=== PATIENT | male | born 1970 | race Caucasian/White ===

== ENCOUNTER 2018-01-07 07:56 | Emergency (ER) | payer OTHER ==
[~2018-01-07] VITALS: Ht 165.1 cm; Wt 100.7 kg
[2018-01-07 08:06] VITALS: Ht 165.1 cm; Wt 100.7 kg
[2018-01-07 08:44] LABS: BASOPHIL % 0.8 % (0-2); PLATELET COUNT 219 x10^3mcL (130-400); RED CELL DISTRIBUTION WIDTH 12.9 % (11.5-14.5)
[2018-01-07 08:45] LABS: microscopic required? NO
[2018-01-07 09:01] LABS: CALCIUM 8.1 mg/dL (8.5-10.1); CARBON DIOXIDE 25.1 mmol/L (21-32); CHLORIDE SERUM 101 mmol/L (98-107); CREATININE SERUM 0.9 mg/dL (0.7-1.3); GFR1 > 60 mL/min; GLUCOSE SERUM 179 mg/dL (74-106); SODIUM SERUM 137 mmol/L (136-145)
[2018-01-07 09:05] LABS: ALKALINE PHOSPHATASE 81 U/L (46-116); ALT/SGPT 64 U/L (16-63); AMYLASE 31 U/L (25-115); AST/SGOT 25 U/L (15-37); BILIRUBIN TOTAL 0.2 mg/dL (0.20-1.00); LIPASE 143 IU/L (73-393)
[2018-01-07 09:06] LABS: ALBUMIN 3.3 g/dL (3.4-5.0)
[2018-01-07 09:24] LABS: UA SPECIFIC GRAVITY >=1.030 (1.005-1.035); urine erythrocyte NEGATIVE (NEGATIVE)
[2018-01-07 10:04] VITALS: BP 112/65
== END 2018-01-07 11:35 | disposition home or self-care (01) ==
LOC: ED 07:56
PROVIDERS: Emergency Medicine
DX: K57.90 Diverticulosis of intestine, part unspecified, without perforation or abscess without bleeding (principal); M54.5 Low back pain
CPT/HCPCS: J1885; J7030

== ENCOUNTER 2020-04-16 00:30 | Emergency (ER) | payer OTHER ==
[~2020-04-16] VITALS: Ht 165.1 cm; Wt 104.3 kg
[2020-04-16 00:45] VITALS: Ht 165.1 cm; Wt 104.3 kg
[2020-04-16 02:56] LABS: BASOPHIL % 0.3 % (0-2); PLATELET COUNT 208 x10^3mcL (130-400); RED CELL DISTRIBUTION WIDTH 12.8 % (11.5-14.5)
[2020-04-16 03:03] LABS: CALCIUM 8.9 mg/dL (8.5-10.1); CARBON DIOXIDE 23.2 mmol/L (21-32); CHLORIDE SERUM 103 mmol/L (98-107); CREATININE SERUM 0.9 mg/dL (0.7-1.3); GFR1 > 60 mL/min; GLUCOSE SERUM 158 mg/dL (74-106); POTASSIUM SERUM 3.9 mmol/L (3.5-5.1); SODIUM SERUM 140 mmol/L (136-145)
[2020-04-16 04:39] VITALS: BP 129/84
== END 2020-04-16 04:39 | disposition home or self-care (01) ==
LOC: ED 00:30
PROVIDERS: Emergency Medicine
DX: F10.129 Alcohol abuse with intoxication, unspecified (principal); R06.2 Wheezing

== ENCOUNTER 2020-04-25 18:48 | Emergency (ER) | payer OTHER ==
[~2020-04-25] VITALS: Ht 165.1 cm; Wt 104.8 kg
[2020-04-25 19:38] VITALS: BP 119/84; Ht 165.1 cm; Wt 104.8 kg
== END 2020-04-25 20:13 | disposition left against medical advice (07) ==
LOC: ED 18:48
DX: Z53.21 Procedure and treatment not carried out due to patient leaving prior to being seen by health care provider (principal)
CPT/HCPCS: U0003